=== PATIENT | male | born 1950 | race Caucasian/White ===

== ENCOUNTER 2018-09-27 16:28 | Inpatient (IN) ==
[2018-09-27 17:48] LABS: Appearance Urine Clear (Clear); Bilirubin Urine Negative (Negative); Blood Urine Negative (Negative); Color Urine Yellow; Glucose Urine UA Negative (Negative); Ketones Urine Trace (Negative); Leukocyte Esterase Urine Negative (Negative); Nitrite Urine Negative (Negative); Protein Urine Negative (Negative); Specific Gravity Urine 1.025 (1.000-1.030); Urobilinogen Urine Negative (Negative); pH Urine 6.5 (4.5-7.5)
[2018-09-27 18:06] LABS: Amphetamines+Metham, Urine Neg (Neg); Barbiturates, Urine Neg (Neg); Benzodiazepine, Urine Neg (Neg); Cocaine, Urine Neg (Neg); MDMA (Ecstacy), Urine Neg (Neg); Methadone, Urine Neg (Neg); Opiate, Urine Neg (Neg); Phencyclidine, Urine Neg (Neg)
--- NOTE | 2018-09-27 18:34 | Emergency Department Note ---
Entered by Genai Tobin acting as a scribe for Khadar Law DO History of Present Illness General Chief complaint: Mental Health Evaluation Stated complaint: NOT EATING, NOT TALKING, MENTAL HEALTH EVAL Time Seen by Provider: 09/27/18 17:06 Source: patient and family History of Present Illness Onset (ago): week(s) 4 Location: head Pain Consistency: + other (worsening) Quality: + other (mental health) Relieved By: + medication (Ativan) Exacerbated By: + medication (Ativan) Associated symptoms: + denies other symptoms (SI, HI), + loss of appetite and + other (constantly sleeping, forgetful, anxiety) The patient is a 67 year old male who presents to the ED for a mental health evaluation. The patients states that she had bought the patient in 4 nights ago for anxiety that his progressively gotten worse over the last 4 week s. She reports that he has not been eating, he has not been able to care for his dogs like normal, and all he does is sleep or stare. She reports that he will sleep, get up, move, and go back to sleep. She notes that when he is awake he is sitting in his chair staring without the TV on and without doing anything. She reports that he is concerned over everything from finances to his dogs to his kids to her as she recently had a TIA. She states that his PCP tried putting him on Lexapro, but it offered no relief. The patients daughter states that 4 nights ago it hit a peak and she called a vessel slag worker. She states that after speaking to the crisis counselor in private, they recommended that he come to the ED for admission as inpatient. The patients states that once here he got an Ativan and that helped resolve all his symptoms. She states that they decided that he didnt need inpatient and were discharged with 2 of Ativan. She reports that yesterday they followed up with his PCP who prescribed him Ativan, but as soon as they got home yesterday, he fell asleep and hasnt been up since. She notes that he has only had 4 since leaving the ED 4 days ago. She notes he last had it 4 hours ago. The patient notes that he thinks someone should hurt him. He states that he feels like he let his family down. The patients complains of the patient being forgetful; like locking doors and turning off lights. The patient denies SI and HI. Home Medications Home Medications Medication Instructions Recorded Confirmed Type multivitamin 1 cap PO QAM #0 04/28/15 09/27/18 History aspirin 81 mg tablet,delayed 81 mg PO QAM #0 09/03/18 09/27/18 History release omega 4-rbg-kye-fish oil 100 1 cap PO .QOD cap 09/03/18 09/27/18 History mg-160 mg-1,000 mg capsule escitalopram oxalate 10 mg PO DAILY 09/27/18 09/27/18 History lorazepam 1 mg PO DAILY PRN 09/27/18 09/27/18 History tamsulosin 0.4 mg PO HS 09/27/18 09/27/18 History Allergies Allergy/AdvReac Type Severity Reaction Status Date / Time No Known Drug Allergies Allergy Unknown Verified 09/26/18 07:09 Past Med/Surg History Medical History BCC (basal cell carcinoma of skin) Benign enlargement of prostate Organic impotence Depression (Acute) Anxiety (Acute) HLD (hyperlipidemia) Encounter for screening colonoscopy Fusion of spine lumbar Surgical History History of back surgery 2006 History of colonoscopy History of herniorrhaphy 1985 History of neck surgery 1997 Hx of local excision of skin lesion hx of skin cancer Family History Sister Breast cancer Diabetes Father Heart disease Social History Preferred Language: [place] Communication Ability: Effective Beliefs That Will Affect Care: None marital status: Current Living Situation: Spouse current occupational status: employed and retired current occupation: local tanker truck driver Feels Safe at Home: Yes Smoking Status: Never smoker Second Hand Exposure: No Hx Alcohol Use: No Hx Substance Use: No Review of Systems See HPI for pertinent positives & negatives. and A total of 10 systems reviewed and were otherwise negative Physical Exam Vital Signs Vital Signs - 24 hr 09/27/18 16:33 09/27/18 18:29 Temperature 36.5 C Temperature Source Oral Sepsis Recent Fever Within 48 Hours No Sepsis Action Taken by Nursing No Action Required Pulse Rate 93 H Pulse Rate [Finger] 80 Respiratory Rate 16 18 Blood Pressure 140/94 Blood Pressure [Right Arm] 132/82 Blood Pressure Mean 109 Blood Pressure Mean [Right Arm] 98 Blood Pressure Position Sitting Pulse Oximetry 97 98 Oxygen Delivery Method Room Air CONSTITUTIONAL/VITAL SIGNS: Reviewed / noted above. GENERAL: Non-toxic in appearance. INTEGUMENTARY: Warm, dry, and [place]. HEAD: Normocephalic. EYES: without scleral icterus or trauma. ENT/OROPHARYNX: clear and moist. LYMPHADENOPATHY/NECK: Is supple without lymphadenopathy or meningismus. RESPIRATORY: Lungs clear and equal. CARDIOVASCULAR: Regular rate and rhythm. GI/ABDOMEN: Soft and nontender. No organomegaly or pulsatile mass. No rebound or guarding. Normal bowel sounds. EXTREMITIES: Warm and well perfused. BACK: No CVA tenderness. NEUROLOGICAL: Intact without focal deficits. PSYCHIATRIC: Depressed affect. MUSCULOSKELETAL: Normally developed with good muscle tone. Course 1708: Past medical records reviewed. The patient was evaluated in room A8. A complete history and physical exam was performed. 1931: The patient was medically cleared at this time. 2154: The patient was accepted to [address] [place] [address] at this time. Medical Decision Making Differential Diagnosis Differential diagnoses considered include mood disorder, infection, hypoglycemia, electrolyte abnormalities, cardiac sources, intracerebral event, toxicologic, neurologic, as well as others. Medical Records Attestation: I reviewed the patient's medical records. Home Medications Current Medication List: was personally reviewed by me Laboratory Data Attestation: I reviewed the patient's lab results. Result diagrams: 09/27/18 18:13 09/27/18 18:13 Lab Results 09/27/18 09/27/18 09/27/18 Range/Units 17:30 17:30 18:13 WBC 6.47 (4.8-10.8) K/uL RBC 5.09 (4.7-6.1) M/uL Hgb 14.8 (14.0-18.0) g/dL Hct 41.9 L (42-52) % MCV 82.3 (80-100) fL MCH 29.1 (25-34) pg MCHC 35.3 (32-36) g/dL RDW Std Deviation 39.5 (36.4-46.3) fL RDW Coeff of Robel 13.0 (11.5-14.5) % Plt Count 184 (130-400) K/uL MPV 9.7 (7.4-10.4) fL Immature Gran % (Auto) 0.2 % Neut % (Auto) 56.7 % Lymph % (Auto) 32.1 % Green % (Auto) 9.4 % Eos % (Auto) 1.4 % Baso % (Auto) 0.2 % Immature Gran # (Auto) 0.01 (0.00-0.02) K/uL Neut # (Auto) 3.67 (1.4-6.5) K/uL Lymph # (Auto) 2.08 (1.2-3.4) K/uL Green # (Auto) 0.61 H (0.11-0.59) K/uL Eos # (Auto) 0.09 (0-0.5) K/uL Baso # (Auto) 0.01 (0-0.2) K/uL Sodium (136-145) mmol/L Potassium (3.5-5.1) mmol/L Chloride (98-107) mmol/L Carbon Dioxide (21-32) mmol/L Anion Gap (3-11) BUN (7-18) mg/dl Creatinine (0.6-1.4) mg/dl Est Cr Clr Drug Dosing ml/min Est GFR ( Amer) Est GFR (Non-Af Amer) BUN/Creatinine Ratio (10-20) Glucose (70-99) mg/dl Calcium (8.5-10.1) mg/dl Total Bilirubin (0.2-1) mg/dl AST (15-37) U/L ALT (12-78) U/L Alkaline Phosphatase (45-117) U/L Total Protein (6.4-8.2) gm/dl Albumin (3.4-5.0) gm/dl Globulin (2.5-4.0) gm/dl Albumin/Globulin Ratio (0.9-2) TSH (0.300-4.500) uIu/ml Urine Color Yellow Urine Appearance Clear (Clear) Urine pH 6.5 (4.5-7.5) Ur Specific [place] 1.025 (1.000-1.030) Urine Protein Negative (Negative) Urine Glucose (UA) Negative (Negative) Urine Ketones Trace H (Negative) Urine Blood Negative (Negative) Urine Nitrite Negative (Negative) Urine Bilirubin Negative (Negative) Urine Urobilinogen Negative (Negative) Ur Leukocyte Esterase Negative (Negative) Urine Opiates Screen Neg (Neg) Ur Methadone, Qual Neg (Neg) Urine Barbiturates Neg (Neg) Ur Phencyclidine (PCP) Neg (Neg) U Amphetamin/Meth Scrn Neg (Neg) MDMA (Ecstasy) Screen Neg (Neg) U Benzodiazepines Scrn Neg (Neg) Ur Cocaine Metabolite Neg (Neg) U Marijuana (THC) Screen Neg (Neg) Ethyl Alcohol mg/dL (0-3) mg/dl 09/27/18 09/27/18 Range/Units 18:13 18:13 WBC (4.8-10.8) K/uL RBC (4.7-6.1) M/uL Hgb (14.0-18.0) g/dL Hct (42-52) % MCV (80-100) fL MCH (25-34) pg MCHC (32-36) g/dL RDW Std Deviation (36.4-46.3) fL RDW Coeff of [place]el (11.5-14.5) % Plt Count (130-400) K/uL MPV (7.4-10.4) fL Immature Gran % (Auto) % Neut % (Auto) % Lymph % (Auto) % Green % (Auto) % Eos % (Auto) % Baso % (Auto) % Immature Gran # (Auto) (0.00-0.02) K/uL Neut # (Auto) (1.4-6.5) K/uL Lymph # (Auto) (1.2-3.4) K/uL Green # (Auto) (0.11-0.59) K/uL Eos # (Auto) (0-0.5) K/uL Baso # (Auto) (0-0.2) K/uL Sodium 136 (136-145) mmol/L Potassium 3.7 (3.5-5.1) mmol/L Chloride 105 (98-107) mmol/L Carbon Dioxide 24 (21-32) mmol/L Anion Gap 7.0 (3-11) BUN 19 H (7-18) mg/dl Creatinine 0.89 (0.6-1.4) mg/dl Est Cr Clr Drug Dosing 85.4 ml/min Est GFR ( Amer) 104.0 Est GFR (Non-Af Amer) 89.7 BUN/Creatinine Ratio 21.4 H (10-20) Glucose 97 (70-99) mg/dl Calcium 9.1 (8.5-10.1) mg/dl Total Bilirubin 0.4 (0.2-1) mg/dl AST 15 (15-37) U/L ALT 33 (12-78) U/L Alkaline Phosphatase 57 (45-117) U/L Total Protein 7.2 (6.4-8.2) gm/dl Albumin 3.4 (3.4-5.0) gm/dl Globulin 3.8 (2.5-4.0) gm/dl Albumin/Globulin Ratio 0.9 (0.9-2) TSH 1.780 (0.300-4.500) uIu/ml Urine Color Urine Appearance (Clear) Urine pH (4.5-7.5) Ur Specific [place] (1.000-1.030) Urine Protein (Negative) Urine Glucose (UA) (Negative) Urine Ketones (Negative) Urine Blood (Negative) Urine Nitrite (Negative) Urine Bilirubin (Negative) Urine Urobilinogen (Negative) Ur Leukocyte Esterase (Negative) Urine Opiates Screen (Neg) Ur Methadone, Qual (Neg) Urine Barbiturates (Neg) Ur Phencyclidine (PCP) (Neg) U Amphetamin/Meth Scrn (Neg) MDMA (Ecstasy) Screen (Neg) U Benzodiazepines Scrn (Neg) Ur Cocaine Metabolite (Neg) U Marijuana (THC) Screen (Neg) Ethyl Alcohol mg/dL < 3.0 (0-3) mg/dl Blood Pressure Blood Pressure Findings: Normal blood pressure Blood Pressure Disposition: did not require urgent referral MDM Narrative This is a 67-year-old male who presents to the ED with a chief complaint of depression. The reports the patient has been depressed for about 5 weeks. The PCP put the patient on Lexapro. The patient was seen here on Sunday and the original plan was to admit the patient but after a dose of Ativan he was feeling better and went home. His PCP prescribed him Ativan but he has been drowsy and just laying around most of the time since then. He has no admissions. He denies being suicidal or homicidal. The patient states that he feels as though he let his family down. Family states that he is not eating as much as he normally does. He at times just sits in a chair and stares at the wall. His vital signs are stable. His physical exam was unremarkable. The patient was medically cleared. The blood work was reviewed. The patient was accepted to [facility]. Impression & Plan Depression, Anxiety Discharge Plan Visit Data Chief Complaint: Mental Health Evaluation Stated Complaint: NOT EATING, NOT TALKING, MENTAL HEALTH EVAL ED Provider: Khadar Law Discharge Problem: Depression, Anxiety Patient Disposition: Transfer Behavioral Health Fac Forms Stand Alone Forms: My [facility] Prescriptions Prescriptions: No Action multivitamin Capsule 1 cap PO QAM Qty: 0 RF: 0 aspirin [Aspir-81] 81 mg tablet,delayed release (DR/EC) 81 mg PO QAM Qty: 0 RF: 0 Fish Oil 100-160-1,000 mg capsule 1 cap PO .QOD RF: 0 tamsulosin 0.4 mg capsule 0.4 mg PO HS RF: 0 lorazepam 1 mg tablet 1 mg PO DAILY PRN (Reason: Anxiety) RF: 0 escitalopram oxalate 10 mg tablet 10 mg PO DAILY RF: 0 Referrals Referrals: Stacey Gomez [facility] [Primary Care Provider] - Discharge Problem: Depression Qualifiers: Depression Type: unspecified Qualified Code(s): F32.9 - Major depressive disorder, single episode, unspecified The scribe's documentation has been prepared under my direction and personally reviewed by me in its entirety. I confirm that the note above accurately reflects all work, treatment, procedures, and medical decision making performed by me.
[2018-09-27 18:40] LABS: Basophils # (auto) 0.01 K/uL (0-0.2); Basophils % (auto) 0.2 %; Eosinophils # (auto) 0.09 K/uL (0-0.5); Eosinophils % (auto) 1.4 %; Hematocrit (blood only) 41.9 % (42-52); Hemoglobin 14.8 g/dL (14.0-18.0); Immature Granulocytes # (auto) 0.01 K/uL (0.00-0.02); Immature Granulocytes % (auto) 0.2 %; Lymphocytes # (auto) 2.08 K/uL (1.2-3.4); Lymphocytes % (auto) 32.1 %; Mean Corpuscular Hgb Conc 35.3 g/dL (32-36); Mean Corpuscular Volume 82.3 fL (80-100); Mean Platelet Volume 9.7 fL (7.4-10.4); Monocytes # (auto) 0.61 K/uL (0.11-0.59); Monocytes % (auto) 9.4 %; Neutrophils # (auto) 3.67 K/uL (1.4-6.5); Neutrophils % (auto) 56.7 %; Platelet Count 184 K/uL (130-400); RDW Standard Deviation 39.5 fL (36.4-46.3); Red Blood Count 5.09 M/uL (4.7-6.1); White Blood Count 6.47 K/uL (4.8-10.8)
[2018-09-27 19:04] LABS: Albumin Level 3.4 gm/dl (3.4-5.0); BUN Creatinine Ratio 21.4 (10-20); Calcium 9.1 mg/dl (8.5-10.1); Creatinine Clr Calc Pharmacy 85.4 ml/min; Est GFR (Non-African American) 89.7; Potassium 3.7 mmol/L (3.5-5.1)
[2018-09-27 19:14] LABS: Albumin Globulin Ratio 0.9 (0.9-2); Bilirubin,Total 0.4 mg/dl (0.2-1); Globulin 3.8 gm/dl (2.5-4.0); Total Protein 7.2 gm/dl (6.4-8.2)
[2018-09-27] MEDS ORDERED: ACETAMINOPHEN 325 MG TAB PO PRN (22:22)
[2018-09-27] MEDS ORDERED: BISMUTH SUBSALICYLATE PER ML OMNICELL CHARGE PO PRN (22:22)
[2018-09-27] MEDS ORDERED: MAGNESIUM HYDROXIDE SUSP 30 ML UDC PO PRN (22:22)
[2018-09-27] MEDS ORDERED: SODIUM CHLORIDE 0.65% NA SOLN 45 ML (OCEAN) PRN (22:22)
[2018-09-27] MEDS ORDERED: ALUMINUM/MAGNESIUM SUSP 30 ML UDC PO PRN (22:22)
[2018-09-27] MEDS ORDERED: LORazepam 1 MG TAB PO PRN (22:25)
[2018-09-28] MEDS ORDERED: ESCITALOPRAM OXALATE 10 MG TAB PO SCH (09:00)
[2018-09-28] MEDS ORDERED: ESCITALOPRAM OXALATE 10 MG TAB PO ONE (10:30)
--- NOTE | 2018-09-28 10:43 | History & Physical ---
Date of Service September 28, 2018 Impression / Recommendations Impression 67-year-old gentleman without prior psychiatric history who has appeared depressive and highly anxious for several weeks with declining functional abilities at home precipitating psychiatric hospitalization. He appears essentially incapacitated by his anxiety with somatic and guilty ruminations at admission. He has reportedly responded positively to Ativan so far. SSRI trial with Lexapro recently initiated by PCP without evident therapeutic benefit. Diagnosis: MDD, single episode, severe, with anxious distress, rule out associated psychosis (1) Depression: 09/28 Patient admitted on a voluntary status to the behavioral health unit. He will participate in unit programming as appropriate We will increase Lexapro to 15 mg daily with plan to further titrate as indicated and tolerated. Start Remeron 15 mg p.o. nightly tonight for depression, anxiety, sleep, and appetite stim Rule out psychosis. Patient vague regarding self-report of hallucinations today. Somatically preoccupied. Possible delusions of poverty Depression Type: unspecified Qualified Code(s): F32.9 - Major depressive disorder, single episode, unspecified (2) Anxiety: 09/28 Anxiety severe We will schedule Ativan 1 mg 3 times daily watching for sedation Increase Lexapro and start Remeron as above Appears likely that anxiety is significantly impacting his cognitive abilities presently. If he is able to participate we will try to do MOCA to help track this as anxiety and depression improved with treatment. Inventory Assets Strengths: Help seeking, compliant with treatment recommendations Needs: Medication management and structured setting Risk Factors Assessment Male: Yes : Yes Substance Use Disorders: No Previous Attempt: No Family History of Suicide: No Previous Psychiatric Hospitalization: No Hopelessness: No Smoker: No Protective Factors Assessment : Yes Employed: Yes (Retired) Stable Relationships: Yes Supportive Family: Yes Psychiatric History Identifying Data DONNA RAMON is a 67-year-old M who currently lives in near [facility] with his . He denies prior psychiatric history. He was admitted on 09/27/18 21:56 on a 201 voluntary commitment for functional compromise in the outpatient setting associated with severe depression and anx iety. Chief Complaint "I let my family down." History of Present Illness Per ER note from 09/27/2018 patient presented to the ER for mental health evaluation. reported that she had brought the patient in 4 nights prior for anxiety and progressively worsening over the past 4 weeks. Has not been eating. Diminished functional abilities noted at home. Staring blankly sitting in the chair without the TV on without doing anything. Excessive concern over everything from finances to dogs to kids to her well-being as reportedly recently had a TIA. Noted that he had been recently started on Lexapro by PCP without relief. They had called crisis 4 nights prior to presentation. Ativan seemed to dramatically improve symptoms initially. He had received approximately 4 Ativan doses since discharge from the ED 4 days prior. Patient stated that he think someone should hurt him. He stated that he felt like he left his family down. His reported that he was appearing more forgetful. Patient is a difficult historian this morning secondary to emotional distress. For the majority of the interview he holds his head in his hands staring at the floor. He confirms that he has been feeling worse for the past few weeks, highly anxious and depressed. From his perspective he is unable to sleep and reports only dozing off and on with frequent waking. Energy very low. Endorses crying spells, diminished appetite. Reports 10 pound weight loss in the past month. Endorses thoughts of life not being worth living in current condition but states that he wants to live but feels that he is "nonfunctional" at home. He denies thoughts of harm to anyone else. No self-injurious behaviors. He describes a history of excessive worry however anxiety recently severely exacerbated. Denies history of panic attacks. He denies symptoms of lamin. He states "probably" when asked about hallucinations but cannot further clarify. He endorses absentmindedness at home. He denies prior treatment for depression or anxiety. He is focused on bowel movements during interview but reports he was able to defecate last 2 days ago. Past Psychiatric History Previous Psych History: Patient denies prior psychiatric history Current Psychiatric Diagnosis: Denies Outpatient Services: None Previous Psych Admissions: None Describe Attempts in the Past: Denies Past Medication Trials: Lexapro started in August 2018 by PCP. prn Ativan started in ER in recent weeks Past Head Trauma/Neuro History History of Concussion/Seizure: No Allergies Allergy/AdvReac Type Severity Reaction Status Date / Time No Known Drug Allergies Allergy Unknown Verified 09/26/18 07:09 Home Medications Home Medications Medication Instructions Recorded Confirmed Type multivitamin 1 cap PO QAM #0 04/28/15 09/27/18 History aspirin 81 mg tablet,delayed 81 mg PO QAM #0 09/03/18 09/27/18 History release omega [id number]-fish oil 100 1 cap PO .QOD cap 09/03/18 09/27/18 History mg-160 mg-1,000 mg capsule escitalopram oxalate 10 mg PO DAILY 09/27/18 09/27/18 History lorazepam 1 mg PO DAILY PRN 09/27/18 09/27/18 History tamsulosin 0.4 mg PO HS 09/27/18 09/27/18 History Family History Family History of: None Alcohol History Hx of Alcohol Use Over the Past 12 Months: No AUDIT Total Score: 0 Smoking Use Have You Smoked or Used Tobacco Products in the Last 30 Days: No Smoking Status: Never smoker Substance History Hx of Prescription Med Misuse Over the Past 12 Months: No Hx of Over the Counter Med Misuse Over the Past 12 Months: No Hx of Inhalent Misuse Over the Past 12 Months: No Hx of Organic Substance Use Over the Past 12 Months: No Hx of Illegal Substances/Street Drug Use Over Past 12 Months: No Problems as a Result of Past Substance Use: None Identified Personal History Living Arrangements: Home Highest Grade Completed: High School Graduate 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) Beliefs That Will Affect Care: None Psychological Trauma History Comment: Denies Patient History Medical History BCC (basal cell carcinoma of skin) Benign enlargement of prostate Organic impotence Depression (Acute) Anxiety (Acute) HLD (hyperlipidemia) Encounter for screening colonoscopy Fusion of spine lumbar Surgical History History of back surgery 2007 History of colonoscopy History of herniorrhaphy 1986 History of neck surgery 1997 Hx of local excision of skin lesion hx of skin cancer Family History Sister Breast cancer Diabetes Father Heart disease Social History Preferred Language: Icelandic Communication Ability: Effective Beliefs That Will Affect Care: None marital status: Current Living Situation: Spouse current occupational status: employed and retired current occupation: lease purchase truck driver Feels Safe at Home: Yes Smoking Status: Never smoker Second Hand Exposure: No Hx Alcohol Use: No Hx Substance Use: No Review of Systems Constitutional: as per Subjective / HPI Respiratory: no problem reported Cardiovascular: no problem reported Gastrointestinal: + constipation; no abdominal pain Musculoskeletal: + back pain Neurologic: as per Subjective / HPI Psychiatric: as per Subjective / HPI 10 point review of systems otherwise negative except as per HPI Physical Exam Psychiatric: Orientation: oriented x 3 and cooperative (However participation limited by emotional duress) Apperance: + disheveled Eye Contact: + poor eye contact Motor Behavior: + unsteady gait or station (Gait is slow, somewhat wide-based) Speech: + abnormal rate/rhythm/volume of speech (Soft, minimal. Articulation clear) Affect: + depressed affect, + anxious affect and + constricted affect Mood: + depressed mood and + anxious mood Thought Process: goal directed thought process (He is superficially logical and responds to direct questions however thought process appears somewhat slowed overall and perseverative) Thought Content: + preoccupation (Bowel function, financial worries, but family down), + delusions, + worthlessness and + self deprecation Suicidal Thoughts: denies suicidal thoughts, denies suicidal plan and denies suicidal intent Homicidal Thoughts: denies homicidal thoughts, denies homicidal plan and denies homicidal intent Patient endorses probable marci lucinations but cannot or will not further clarify at this time Cognition: + attention not intact Insight: + limited insight Judgement: + limited judgement Vital Signs (Past 24 Hours): Last Vital Signs Temp 36.7 C 09/28/18 06:38 Pulse 94 H 09/28/18 06:40 Resp 16 09/28/18 06:38 BP 128/77 09/28/18 06:40 Pulse Ox 97 09/27/18 22:05 Results & Data Laboratory Results Laboratory Results - last 24 hr 09/27/18 09/27/18 09/27/18 17:30 17:30 18:13 WBC 6.47 RBC 5.09 Hgb 14.8 Hct 41.9 L MCV 82.3 MCH 29.1 MCHC 35.3 RDW Std Deviation 39.5 RDW Coeff of Robel 13.0 Plt Count 184 MPV 9.7 Immature Gran % (Auto) 0.2 Neut % (Auto) 56.7 Lymph % (Auto) 32.1 [place] % (Auto) 9.4 Eos % (Auto) 1.4 Baso % (Auto) 0.2 Immature Gran # (Auto) 0.01 Neut # (Auto) 3.67 Lymph # (Auto) 2.08 [place] # (Auto) 0.61 H Eos # (Auto) 0.09 Baso # (Auto) 0.01 Sodium Potassium Chloride Carbon Dioxide Anion Gap BUN Creatinine Est Cr Clr Drug Dosing Est GFR ( Amer) Est GFR (Non-Af Amer) BUN/Creatinine Ratio Glucose Calcium Total Bilirubin AST ALT Alkaline Phosphatase Total Protein Albumin Globulin Albumin/Globulin Ratio TSH Urine Color Yellow Urine Appearance Clear Urine pH 6.5 Ur Specific [place] 1.025 Urine Protein Negative Urine Glucose (UA) Negative Urine Ketones Trace H Urine Blood Negative Urine Nitrite Negative Urine Bilirubin Negative Urine Urobilinogen Negative Ur Leukocyte Esterase Negative Urine Opiates Screen Neg Ur Methadone, Qual Neg Urine Barbiturates Neg Ur Phencyclidine (PCP) Neg U Amphetamin/Meth Scrn Neg MDMA (Ecstasy) Screen Neg U Benzodiazepines Scrn Neg Ur Cocaine Metabolite Neg U Marijuana (THC) Screen Neg Ethyl Alcohol mg/dL 09/27/18 09/27/18 18:13 18:13 WBC RBC Hgb Hct MCV MCH MCHC RDW Std Deviation RDW Coeff of Robel Plt Count MPV Immature Gran % (Auto) Neut % (Auto) Lymph % (Auto) [place] % (Auto) Eos % (Auto) Baso % (Auto) Immature Gran # (Auto) Neut # (Auto) Lymph # (Auto) [place] # (Auto) Eos # (Auto) Baso # (Auto) Sodium 136 Potassium 3.7 Chloride 105 Carbon Dioxide 24 Anion Gap 7.0 BUN 19 H Creatinine 0.89 Est Cr Clr Drug Dosing 85.4 Est GFR ( Amer) 104.0 Est GFR (Non-Af Amer) 89.7 BUN/Creatinine Ratio 21.4 H Glucose 97 Calcium 9.1 Total Bilirubin 0.4 AST 15 ALT 33 Alkaline Phosphatase 57 Total Protein 7.2 Albumin 3.4 Globulin 3.8 Albumin/Globulin Ratio 0.9 TSH 1.780 Urine Color Urine Appearance Urine pH Ur Specific [place] Urine Protein Urine Glucose (UA) Urine Ketones Urine Blood Urine Nitrite Urine Bilirubin Urine Urobilinogen Ur Leukocyte Esterase Urine Opiates Screen Ur Methadone, Qual Urine Barbiturates Ur Phencyclidine (PCP) U Amphetamin/Meth Scrn MDMA (Ecstasy) Screen U Benzodiazepines Scrn Ur Cocaine Metabolite U Marijuana (THC) Screen Ethyl Alcohol mg/dL < 3.[address] 09/02/2017: No acute process. Patchy white matter hypodensities likely small vessel in nature Current Inpatient Medications Current Inpatient Medications: Current Inpatient Medications Acetaminophen (Tylenol) 650 mg PO Q4H PRN PRN Reason: Headache or Minor Fever Stop: 10/27/18 22:21 Al Hydrox/Mg Hydrox/Simethicone (Maalox) 30 ml PO Q4H PRN PRN Reason: GI Upset Stop: 10/27/18 22:21 Aspirin (Ecotrin Ectab) 81 mg PO QAM ESTEE Stop: 10/28/18 08:59 Bismuth Subsalicylate (Kaopectate) 15 ml PO PRN PRN PRN Reason: Loose Stool Stop: 10/27/18 22:21 Escitalopram Oxalate (Lexapro Tab) 15 mg PO QAM ESTEE Stop: 10/29/18 08:59 Hydroxyzine HCl (Vistaril) 50 mg PO HSZ PRN PRN Reason: Insomnia Stop: 10/27/18 22:21 Hydroxyzine HCl (Vistaril) 25 mg PO Q4H PRN PRN Reason: Anxiety Stop: 10/27/18 22:21 Lorazepam (Ativan) 1 mg PO TID ESTEE Stop: 10/28/18 10:29 Magnesium Hydroxide (Milk Of Magnesia) 30 ml PO DAILY PRN PRN Reason: Heartburn Stop: 10/27/18 22:21 Mirtazapine (Remeron) 15 mg PO HS ESTEE Stop: 10/28/18 21:59 Multivitamins (Multivitamin Tab) 1 tab PO QAM ESTEE Stop: 10/28/18 08:59 Sodium Chloride (Tyler Nasal) 1 - 2 sprays NA PRN PRN PRN Reason: Nasal Dryness/Congestion Stop: 10/27/18 22:21 Tamsulosin HCl (Flomax) 0.4 mg PO HS ESTEE Stop: 10/28/18 21:59 CPT Code CPT Code Initial Hospital Care: [id number]
[2018-09-28] MEDS: MULTIVITAMIN TAB PO SCH (11:25)
[2018-09-28] MEDS: LORazepam 1 MG TAB PO SCH ×3 (11:25→21:08)
[2018-09-28] MEDS: ASPIRIN 81 MG ECTAB PO SCH (11:25)
[2018-09-28] MEDS: TAMSULOSIN HCL 0.4 MG CAP PO SCH (21:08)
[2018-09-28] MEDS: MIRTAZAPINE TAB 15 MG TAB PO SCH (21:08)
[2018-09-28] MEDS: DOCUSATE SODIUM 100 MG CAP PO SCH (21:08)
[2018-09-29] MEDS: ASPIRIN 81 MG ECTAB PO SCH (07:37)
[2018-09-29] MEDS: ESCITALOPRAM OXALATE 10 MG TAB PO SCH (07:37)
[2018-09-29] MEDS: MULTIVITAMIN TAB PO SCH (07:37)
[2018-09-29] MEDS: LORazepam 1 MG TAB PO SCH ×3 (07:37→21:35)
--- NOTE | 2018-09-29 14:37 | Psychiatric Progress Note ---
Date of Service September 29, 2018 Impression / Recommendations Impression 67-year-old gentleman without prior psychiatric history who has appeared depressive and highly anxious for several weeks with declining functional abilities at home precipitating psychiatric hospitalization. He appears essentially incapacitated by his anxiety with somatic and guilty ruminations at admission and some posturing concerning for catatonia.. He has reportedly responded positively to Ativan so far. SSRI trial with Lexapro recently initiated by PCP without evident therapeutic benefit. Diagnosis: MDD, single episode, severe, with anxious distress, rule out associated psychosis (1) Depression: 09/28 Patient admitted on a voluntary status to the behavioral health unit. He will participate in unit programming as appropriate We will increase Lexapro to 15 mg daily with plan to further titrate as indicated and tolerated. Start Remeron 15 mg p.o. nightly tonight for depression, anxiety, sleep, and appetite stim Rule out psychosis. Patient vague regarding self-report of hallucinations today. Somatically preoccupied. Possible delusions of poverty 09/29 Dramatic improvement following 3 times daily Ativan. Suspect catatonia with symptoms of negativism, posturing, and grimacing all improved today. Will continue Ativan unchanged today but watch for sedation and this should be weaned as mood improves with antidepressant treatment We will continue the increased dose of Lexapro unchanged today Concern for possible drug reaction (Remeron?). Skin lesions did not look like a classic drug rash today but this will require monitoring. Started on as needed Benadryl today. Has family meeting tomorrow to explore stressors (2) Anxiety: 09/28 Anxiety severe We will schedule Ativan 1 mg 3 times daily watching for sedation Increase Lexapro and start Remeron as above Appears likely that anxiety is significantly impacting his cognitive abilities presently. If he is able to participate we will try to do MOCA to help track this as anxiety and depression improved with treatment. 09/29 Anxiety much improved today but certainly not resolved. Continue Ativan as above for now. Suspect anxiety severity yesterday as primary regarding cognitive difficulties appreciated yesterday. Patient scored a 28 on the moca on 09/28/2018 reducing suspicion for likelihood of progressive neurocognitive disorder Inventory Assets Strengths: Help seeking, compliant with treatment recommendations Needs: Medication management and structured setting Risk Factors Assessment Male: Yes : Yes Substance Use Disorders: No Previous Attempt: No Family History of Suicide: No Previous Psychiatric Hospitalization: No Hopelessness: No Smoker: No Protective Factors Assessment : Yes Employed: Yes (Retired) Stable Relationships: Yes Supportive Family: Yes Interval History Chief Complaint "Not too bad thank you". Review of Systems Notes Slept well last night. Denies gastrointestinal complaints this morning. Denies shortness of breath, cough Sleep Information Total Hours of Sleep: 7.5 Meal Information Percent Meal Consumed - Breakfast: 100 Percent Meal Consumed - Lunch: 100 Percent Meal Consumed - Dinner: 100 Nutrition Comment: poor appetite r/t constipation Subjective Subjective Patient was seen & assessed and interval progress reviewed with Treatment Team. Per staff, patient appeared dramatically improved following Ativan yesterday. Appearing much more calm, conversant, spontaneous. Somatic preoccupation regarding bowel habits resolved. He has a family meeting scheduled for tomorrow with his . Compliant with medication. Scored a 28 on the moca yesterday which reduces suspicion for underlying neurocognitive disorder. On interview the patient states "I am doing much better." He describes diminished anxiety and improving hopefulness. He demonstrates improved problem-solving ability today. "I think we can work it out." He does appear more anxious when describing recent financial stressors and feels bad that his has had to work. Of note, patient complains of a "rash" on his arms which were examined. Forearms are reddened at areas of contact with table. No obvious rash on arms, chest, back, legs. No shortness of breath. Patient denies history of allergies. Physical Exam Psychiatric Orientation: alert, oriented x 3 and cooperative Apperance: appropriately dressed and appropriately groomed; not disheveled Erythematous patches on forearms Eye Contact: + fair eye contact Motor Behavior: no abnormal motor movements Speech: normal rate/rhythm/volume of speech Affect: + anxious affect (But much improved) Mood: no depressed mood ("Pretty good") Thought Process: goal directed thought process Thought Content: reality based without delusions Suicidal Thoughts: denies suicidal thoughts Homicidal Thoughts: denies homicidal thoughts Hallucinations: no auditory hallucinations and no visual hallucinations Cognition: + attention not intact Insight: + limited insight Judgement: + fair judgement Vital Signs (Past 24 Hours) Last Vital Signs Temp 36.6 C 09/29/18 06:39 Pulse 86 09/29/18 06:39 Resp 16 09/29/18 06:39 BP 143/81 H 09/29/18 06:39 Pulse Ox 97 09/27/18 22:05 Results & Data Current Inpatient Medications Current Inpatient Medications: Current Inpatient Medications Acetaminophen (Tylenol) 650 mg PO Q4H PRN PRN Reason: Headache or Minor Fever Stop: 10/27/18 22:21 Al Hydrox/Mg Hydrox/Simethicone (Maalox) 30 ml PO Q4H PRN PRN Reason: GI Upset Stop: 10/27/18 22:21 Aspirin (Ecotrin Ectab) 81 mg PO QAM [facility] Stop: 10/28/18 08:59 Last Admin: 09/29/18 07:37 Dose: 81 mg Documented by: Bismuth Subsalicylate (Kaopectate) 15 ml PO PRN PRN PRN Reason: Loose Stool Stop: 10/27/18 22:21 Diphenhydramine HCl (Benadryl Capsule) 25 mg PO Q8H PRN PRN Reason: itching Stop: 10/29/18 09:14 Last Admin: 09/29/18 11:44 Dose: 25 mg Documented by: Docusate Sodium (Colace) 100 mg PO HS [facility] Stop: 10/28/18 21:59 Last Admin: 09/28/18 21:08 Dose: 100 mg Documented by: Escitalopram Oxalate (Lexapro Tab) 15 mg PO QAM [facility] Stop: 10/29/18 08:59 Last Admin: 09/29/18 07:37 Dose: 15 mg Documented by: Hydroxyzine HCl (Vistaril) 50 mg PO HSZ PRN PRN Reason: Insomnia Stop: 10/27/18 22:21 Hydroxyzine HCl (Vistaril) 25 mg PO Q4H PRN PRN Reason: Anxiety Stop: 10/27/18 22:21 Lorazepam (Ativan) 1 mg PO TID ESTEE Stop: 10/28/18 10:29 Last Admin: 09/29/18 07:37 Dose: 1 mg Documented by: Magnesium Hydroxide (Milk Of Magnesia) 30 ml PO DAILY PRN PRN Reason: Heartburn Stop: 10/27/18 22:21 Mirtazapine (Remeron) 15 mg PO HS [facility] Stop: 10/28/18 21:59 Last Admin: 09/28/18 21:08 Dose: 15 mg Documented by: Multivitamins (Multivitamin Tab) 1 tab PO QAM ESTEE Stop: 10/28/18 08:59 Last Admin: 09/29/18 07:37 Dose: 1 tab Documented by: Sodium Chloride ([place] Nasal) 1 - 2 sprays NA PRN PRN PRN Reason: Nasal Dryness/Congestion Stop: 10/27/18 22:21 Tamsulosin HCl (Flomax) 0.4 mg PO HS ESTEE Stop: 10/28/18 21:59 Last Admin: 09/28/18 21:08 Dose: 0.4 mg Documented by: Post Discharge Appointments Primary Care Physician Name Of Family Doctor: [facility] - Stacey Gomez PA-C Primary Care Provider Appointment Comment: [address], [address], [place] [address] Contact Information Discharge Discharge Address: [address] [place] [address] CPT Code CPT Code 59204 (1) Depression Depression Type: unspecified Qualified Code(s): F32.9 - Major depressive disorder, single episode, unspecified
[2018-09-29] MEDS: TAMSULOSIN HCL 0.4 MG CAP PO SCH (21:36)
[2018-09-29] MEDS: MIRTAZAPINE TAB 15 MG TAB PO SCH (21:36)
[2018-09-29] MEDS: DOCUSATE SODIUM 100 MG CAP PO SCH (21:36)
[2018-09-30] MEDS: ASPIRIN 81 MG ECTAB PO SCH (08:38)
[2018-09-30] MEDS: LORazepam 1 MG TAB PO SCH ×3 (08:38→21:16)
[2018-09-30] MEDS: ESCITALOPRAM OXALATE 10 MG TAB PO SCH (08:38)
[2018-09-30] MEDS: MULTIVITAMIN TAB PO SCH (08:39)
--- NOTE | 2018-09-30 13:49 | Psychiatric Progress Note ---
Date of Service September 30, 2018 Impression / Recommendations Impression 67-year-old gentleman without prior psychiatric history who has appeared depressive and highly anxious for several weeks with declining functional abilities at home precipitating psychiatric hospitalization. He appears essentially incapacitated by his anxiety with somatic and guilty ruminations at admission and some posturing concerning for catatonia - improvement with initiation of higher dosage of lorazepam. Escitalopram titrated to 20mg daily, as patient is wishing to discontinue mirtazapine due to rash appearing around the time of initiation. Participated in family meeting over weekend. Condition appears to be improving, but he remains at high risk of decompensation and possible harm to self if he is discharged prematurely. Diagnosis: MDD, single episode, severe, with anxious distress, rule out associated psychosis (1) Depression: 09/28 Patient admitted on a voluntary status to the behavioral health unit. He will participate in unit programming as appropriate We will increase Lexapro to 15 mg daily with plan to further titrate as indicated and tolerated. Start Remeron 15 mg p.o. nightly tonight for depression, anxiety, sleep, and appetite stim Rule out psychosis. Patient vague regarding self-report of hallucinations today. Somatically preoccupied. Possible delusions of poverty 09/29 Dramatic improvement following 3 times daily Ativan. Suspect catatonia with symptoms of negativism, posturing, and grimacing all improved today. Will continue Ativan unchanged today but watch for sedation and this should be weaned as mood improves with antidepressant treatment We will continue the increased dose of Lexapro unchanged today Concern for possible drug reaction (Remeron?). Skin lesions did not look like a classic drug rash today but this will require monitoring. Started on as needed Benadryl today. Has family meeting tomorrow to explore stressors 09/30 - Increase escitalopram to 20mg daily starting tomorrow morning - denies side effects - Pt requesting to stop mirtazapine due to rash, though not clearly the offending agent - consider retrial on an outpatient basis if escitalopram is ineffective as monotherapy - Awaiting confirmation of outpatient appointments to complete psychiatric aftercare (2) Anxiety: 09/28 Anxiety severe We will schedule Ativan 1 mg 3 times daily watching for sedation Increase Lexapro and start Remeron as above Appears likely that anxiety is significantly impacting his cognitive abilities presently. If he is able to participate we will try to do MOCA to help track this as anxiety and depression improved with treatment. 09/29 Anxiety much improved today but certainly not resolved. Continue Ativan as above for now. Suspect anxiety severity yesterday as primary regarding cognitive difficulties appreciated yesterday. Patient scored a 28 on the moca on 09/28/2018 reducing suspicion for likelihood of progressive neurocognitive disorder 09/30 - Continue lorazepam as scheduled, patient informed the dosage would likely be tapered on an outpatient basis - Increase escitalopram to 20mg for tomorrow morning - Pt requesting to discontinue mirtazapine due to rash, though not clearly the offending agent Inventory Assets Strengths: Help seeking, compliant with treatment recommendations Needs: Medication management and structured setting Risk Factors Assessment Male: Yes : Yes Substance Use Disorders: No Previous Attempt: No Family History of Suicide: No Previous Psychiatric Hospitalization: No Hopelessness: No Smoker: No Protective Factors Assessment : Yes Employed: Yes (Retired) Stable Relationships: Yes Supportive Family: Yes Interval History Identifying Information DONNA RAMON is a 67-year-old M who currently lives in [facility] with his . He denies prior psychiatric history. He was admitted on 09/27/18 21:56 on a 201 voluntary commitment for functional compromise in the outpatient setting associated with severe depression and anxiety - with suspicion for catatonic presentation. Chief Complaint "I'm feeling a little better, It's just hard to keep my mind focused." Review of Systems Notes Constitutional: rash to forearms bilaterally is improving Cardiovascular: denied Respiratory: denied Gastrointestinal: denied Neurological: denied Psychiatric: denies symptoms other than stated above Total of at least 10 systems reviewed, pertinent positives as above and in HPI. Sleep Information Total Hours of Sleep: 8 Meal Information Percent Meal Consumed - Breakfast: 100 Percent Meal Consumed - Lunch: 100 Percent Meal Consumed - Dinner: 100 Nutrition Comment: poor appetite r/t constipation Subjective Subjective Patient was seen & assessed and interval progress reviewed with Treatment Team. Staff reports the patient's debilitating anxiety appears to be improving. He has been participating in group programming and completed a family meeting over the weekend. Pt was seen today to assess progress since admission. Pt states he is noticing improvement in his mood and anxiety. He feels it is still somewhat difficult to focus on tasks on the unit, but believes this is improving as well. Pt states, "the Ativan made it a lot better, but it's still a struggle sometimes." At this time, financial concerns remain most prominent for the patient. Despite this, he states, "It's ok, we'll make it work. My and family are really supportive." Pt is agreeable to further titration of escitalopram, but states he is concerned about continuing mirtazapine. Reviewed the numerous possible causing for his rash, but he continues to prefer the medication be stopped. Pt denies ongoing suicidal ideation, or other concerns today. Physical Exam Psychiatric Orientation: alert, oriented x 3 and cooperative Apperance: appropriately dressed and appropriately groomed Eye Contact: good eye contact Motor Behavior: steady gait and station and no abnormal motor movements Speech: normal rate/rhythm/volume of speech Affect: + anxious affect (mildly) Mood: + anxious mood; no depressed mood "a little better" Thought Process: goal directed thought process and clear/coherent thought process Thought Content: reality based without delusions Suicidal Thoughts: denies suicidal thoughts and denies suicidal plan Homicidal Thoughts: denies homicidal thoughts Hallucinations: no auditory hallucinations and no visual hallucinations Cognition: attention grossly intact and language grossly intact Estimated Intelligence: consistent with education level Insight: + fair insight Judgement: + fair judgement Vital Signs (Past 24 Hours) Last Vital Signs Temp 36.5 C 09/30/18 06:55 Pulse 97 H 09/30/18 06:56 Resp 18 09/30/18 06:55 BP 101/61 09/30/18 06:56 Pulse Ox 97 09/27/18 22:05 Results & Data Current Inpatient Medications Current Inpatient Medications: Current Inpatient Medications Acetaminophen (Tylenol) 650 mg PO Q4H PRN PRN Reason: Headache or Minor Fever Stop: 10/27/18 22:21 Al Hydrox/Mg Hydrox/Simethicone (Maalox) 30 ml PO Q4H PRN PRN Reason: GI Upset Stop: 10/27/18 22:21 Aspirin (Ecotrin Ectab) 81 mg PO QAM ESTEE Stop: 10/28/18 08:59 Last Admin: 09/30/18 08:38 Dose: 81 mg Documented by: Bismuth Subsalicylate (Kaopectate) 15 ml PO PRN PRN PRN Reason: Loose Stool Stop: 10/27/18 22:21 Diphenhydramine HCl (Benadryl Capsule) 25 mg PO Q8H PRN PRN Reason: itching Stop: 10/29/18 09:14 Last Admin: 09/29/18 11:44 Dose: 25 mg Documented by: Docusate Sodium (Colace) 100 mg PO HS ESTEE Stop: 10/28/18 21:59 Last Admin: 09/29/18 21:36 Dose: 100 mg Documented by: Escitalopram Oxalate (Lexapro Tab) 15 mg PO QAM ESTEE Stop: 10/29/18 08:59 Last Admin: 09/30/18 08:38 Dose: 15 mg Documented by: Hydroxyzine HCl (Vistaril) 50 mg PO HSZ PRN PRN Reason: Insomnia Stop: 10/27/18 22:21 Hydroxyzine HCl (Vistaril) 25 mg PO Q4H PRN PRN Reason: Anxiety Stop: 10/27/18 22:21 Lorazepam (Ativan) 1 mg PO TID ESTEE Stop: 10/28/18 10:29 Last Admin: 09/30/18 08:38 Dose: 1 mg Documented by: Magnesium Hydroxide (Milk Of Magnesia) 30 ml PO DAILY PRN PRN Reason: Heartburn Stop: 10/27/18 22:21 Mirtazapine (Remeron) 15 mg PO HS ESTEE Stop: 10/28/18 21:59 Last Admin: 09/29/18 21:36 Dose: Not Given Documented by: Multivitamins (Multivitamin Tab) 1 tab PO QAM ESTEE Stop: 10/28/18 08:59 Last Admin: 09/30/18 08:39 Dose: 1 tab Documented by: Sodium Chloride ([place] Nasal) 1 - 2 sprays NA PRN PRN PRN Reason: Nasal Dryness/Congestion Stop: 10/27/18 22:21 Tamsulosin HCl (Flomax) 0.4 mg PO HS ESTEE Stop: 10/28/18 21:59 Last Admin: 09/29/18 21:36 Dose: 0.4 mg Documented by: Mental Health & Subst Abuse Tx Psychiatrist Name of Psychiatrist: Megh[facility] - Dr. Aguilar Psychiatrist's Date of Appointment with Psychiatrist: 10/17/18 Time of Appointment with Psychiatrist: 10:40 a.m. Psychiatric Appointment Comment: [address], [address], [place], [place] Therapist Name of Therapist: [facility] - Ernie Kincaid Therapist's Date of Therapist Appointment: 10/03/18 Time of Therapist Appointment: 3:00 p.m. (please show up at 2:30) Therapy Appointment Comment: [address] [facility], [address], [place], [place] Post Discharge Appointments Primary Care Physician Name Of Family Doctor: [facility] - NOEMY GardnerC Primary Care Time of Appointment with PCP: Follow up as needed Provider Appointment Comment: [address] [facility], [address], [place] [address] Contact Information Discharge Discharge Address: [address] [place], [place] [address] [facility] CPT Code CPT Code 70933 (1) Depression Depression Type: unspecified Qualified Code(s): F32.9 - Major depressive disorder, single episode, unspecified
[2018-09-30] MEDS: DOCUSATE SODIUM 100 MG CAP PO SCH (21:16)
[2018-09-30] MEDS: TAMSULOSIN HCL 0.4 MG CAP PO SCH (21:16)
[2018-10-01] MEDS: LORazepam 1 MG TAB PO SCH (08:34)
[2018-10-01] MEDS: MULTIVITAMIN TAB PO SCH (08:35)
[2018-10-01] MEDS: ASPIRIN 81 MG ECTAB PO SCH (08:35)
[2018-10-01] MEDS ORDERED: NAPROXEN 250 MG TAB PO PRN (08:46)
[2018-10-01] MEDS ORDERED: ESCITALOPRAM OXALATE 20 MG TAB PO SCH (09:00)
--- NOTE | 2018-10-01 09:02 | Discharge Summary ---
Date of Service October 01, 2018 History of Present Illness Per ER note from 09/27/2018 patient presented to the ER for mental health evaluation. reported that she had brought the patient in 4 nights prior for anxiety and progressively worsening over the past 4 weeks. Has not been eating. Diminished functional abilities noted at home. Staring blankly sitting in the chair without the TV on without doing anything. Excessive concern over everything from finances to dogs to kids to her well-being as reportedly recently had a TIA. Noted that he had been recently started on Lexapro by PCP without relief. They had called crisis 4 nights prior to presentation. Ativan seemed to dramatically improve symptoms initially. He had received approximately 4 Ativan doses since discharge from the ED 4 days prior. Patient stated that he think someone should hurt him. He stated that he felt like he left his family down. His reported that he was appearing more forgetful. Patient is a difficult historian this morning secondary to emotional distress. For the majority of the interview he holds his head in his hands staring at the floor. He confirms that he has been feeling worse for the past few weeks, highly anxious and depressed. From his perspective he is unable to sleep and reports only dozing off and on with frequent waking. Energy very low. Endorses crying spells, diminished appetite. Reports 10 pound weight loss in the past month. Endorses thoughts of life not being worth living in current condition but states that he wants to live but feels that he is "nonfunctional" at home. He denies thoughts of harm to anyone else. No self-injurious behaviors. He describes a history of excessive worry however anxiety recently severely exacerbated. Denies history of panic attacks. He denies symptoms of lamin. He states "probably" when asked about hallucinations but cannot further clarify. He endorses absentmindedness at home. He denies prior treatment for depression or anxiety. He is focused on bowel movements during interview but reports he was able to defecate last 2 days ago. Physical Exam Vital Signs (Past 24 Hours) Last Vital Signs Temp 36.8 C 10/01/18 06:41 Pulse 96 H 10/01/18 06:42 Resp 18 10/01/18 06:41 BP 105/63 10/01/18 06:42 Pulse Ox 97 09/27/18 22:05 Psychiatric Data Advance Directives Advance Directives Information Provided: Yes Advance Directives: No Living Will: No Power of Typer: No Advance Directives Reason:: Declines as Mental Health Visit. Risk Factors Assessment Male: Yes : Yes Substance Use Disorders: No Previous Attempt: No Family History of Suicide: No Previous Psychiatric Hospitalization: No Hopelessness: No Smoker: No Protective Factors Assessment : Yes Employed: Yes (Retired) Stable Relationships: Yes Supportive Family: Yes Discharge Data Lab Results 09/27/18 09/27/18 09/27/18 17:30 17:30 18:13 WBC 6.47 RBC 5.09 Hgb 14.8 Hct 41.9 L MCV 82.3 MCH 29.1 MCHC 35.3 RDW Std Deviation 39.5 RDW Coeff of Robel 13.0 Plt Count 184 MPV 9.7 Immature Gran % (Auto) 0.2 Neut % (Auto) 56.7 Lymph % (Auto) 32.1 [place] % (Auto) 9.4 Eos % (Auto) 1.4 Baso % (Auto) 0.2 Immature Gran # (Auto) 0.01 Neut # (Auto) 3.67 Lymph # (Auto) 2.08 [place] # (Auto) 0.61 H Eos # (Auto) 0.09 Baso # (Auto) 0.01 Sodium Potassium Chloride Carbon Dioxide Anion Gap BUN Creatinine Est Cr Clr Drug Dosing Est GFR ( Amer) Est GFR (Non-Af Amer) BUN/Creatinine Ratio Glucose Calcium Total Bilirubin AST ALT Alkaline Phosphatase Total Protein Albumin Globulin Albumin/Globulin Ratio TSH Urine Color Yellow Urine Appearance Clear Urine pH 6.5 Ur Specific [place] 1.025 Urine Protein Negative Urine Glucose (UA) Negative Urine Ketones Trace H Urine Blood Negative Urine Nitrite Negative Urine Bilirubin Negative Urine Urobilinogen Negative Ur Leukocyte Esterase Negative Urine Opiates Screen Neg Ur Methadone, Qual Neg Urine Barbiturates Neg Ur Phencyclidine (PCP) Neg U Amphetamin/Meth Scrn Neg MDMA (Ecstasy) Screen Neg U Benzodiazepines Scrn Neg Ur Cocaine Metabolite Neg U Marijuana (THC) Screen Neg Ethyl Alcohol mg/dL 09/27/18 09/27/18 18:13 18:13 WBC RBC Hgb Hct MCV MCH MCHC RDW Std Deviation RDW Coeff of Robel Plt Count MPV Immature Gran % (Auto) Neut % (Auto) Lymph % (Auto) [place] % (Auto) Eos % (Auto) Baso % (Auto) Immature Gran # (Auto) Neut # (Auto) Lymph # (Auto) [place] # (Auto) Eos # (Auto) Baso # (Auto) Sodium 136 Potassium 3.7 Chloride 105 Carbon Dioxide 24 Anion Gap 7.0 BUN 19 H Creatinine 0.89 Est Cr Clr Drug Dosing 85.4 Est GFR ( Amer) 104.0 Est GFR (Non-Af Amer) 89.7 BUN/Creatinine Ratio 21.4 H Glucose 97 Calcium 9.1 Total Bilirubin 0.4 AST 15 ALT 33 Alkaline Phosphatase 57 Total Protein 7.2 Albumin 3.4 Globulin 3.8 Albumin/Globulin Ratio 0.9 TSH 1.780 Urine Color Urine Appearance Urine pH Ur Specific [place] Urine Protein Urine Glucose (UA) Urine Ketones Urine Blood Urine Nitrite Urine Bilirubin Urine Urobilinogen Ur Leukocyte Esterase Urine Opiates Screen Ur Methadone, Qual Urine Barbiturates Ur Phencyclidine (PCP) U Amphetamin/Meth Scrn MDMA (Ecstasy) Screen U Benzodiazepines Scrn Ur Cocaine Metabolite U Marijuana (THC) Screen Ethyl Alcohol mg/dL < 3.0 Hospital Course (1) Depression: 09/28 Patient admitted on a voluntary status to the behavioral health unit. He will participate in unit programming as appropriate We will increase Lexapro to 15 mg daily with plan to further titrate as indicated and tolerated. Start Remeron 15 mg p.o. nightly tonight for depression, anxiety, sleep, and appetite stim Rule out psychosis. Patient vague regarding self-report of hallucinations today. Somatically preoccupied. Possible delusions of poverty 09/29 Dramatic improvement following 3 times daily Ativan. Suspect catatonia with symptoms of negativism, posturing, and grimacing all improved today. Will continue Ativan unchanged today but watch for sedation and this should be weaned as mood improves with antidepressant treatment We will continue the increased dose of Lexapro unchanged today Concern for possible drug reaction (Remeron?). Skin lesions did not look like a classic drug rash today but this will require monitoring. Started on as needed Benadryl today. Has family meeting tomorrow to explore stressors 09/30 - Increase escitalopram to 20mg daily starting tomorrow morning - denies side effects - Pt requesting to stop mirtazapine due to rash, though not clearly the offending agent - consider retrial on an outpatient basis if escitalopram is ineffective as monotherapy - Awaiting confirmation of outpatient appointments to complete psychiatric aftercare (2) Anxiety: 09/28 Anxiety severe We will schedule Ativan 1 mg 3 times daily watching for sedation Increase Lexapro and start Remeron as above Appears likely that anxiety is significantly impacting his cognitive abilities presently. If he is able to participate we will try to do MOCA to help track this as anxiety and depression improved with treatment. 09/29 Anxiety much improved today but certainly not resolved. Continue Ativan as above for now. Suspect anxiety severity yesterday as primary regarding cognitive difficulties appreciated yesterday. Patient scored a 28 on the moca on 09/28/2018 reducing suspicion for likelihood of progressive neurocognitive disorder 09/30 - Continue lorazepam as scheduled, patient informed the dosage would likely be tapered on an outpatient basis - Increase escitalopram to 20mg for tomorrow morning - Pt requesting to discontinue mirtazapine due to rash, though not clearly the offending agent Mental Health & Subst Abuse Tx Psychiatrist Name of Psychiatrist: [facility] - Dr. Aguilar Psychiatrist's Date of Appointment with Psychiatrist: 10/17/18 Time of Appointment with Psychiatrist: 10:40 a.m. Psychiatric Appointment Comment: [address] [facility] [facility] [address], [place], [place] Therapist Name of Therapist: [employer] - Ernie Kincaid Therapist's Date of Therapist Appointment: 10/03/18 Time of Therapist Appointment: 3:00 p.m. (please show up at 2:30) Therapy Appointment Comment: [address] [facility], [facility] [address], [place], [place] Post Discharge Appointments Primary Care Physician Name Of Family Doctor: [facility] - Stacey Gomez PA-C Primary Care Time of Appointment with PCP: Follow up as needed Provider Appointment Comment: [address] [facility], [facility] [address], [place] [address] Contact Information Discharge Discharge [address]: [address] [place] [id number] Discharge Plan Discharge Items Reason For Visit: DEPRESSION SINGLE EPISODE Follow-up/Referrals: Stacey Gomez PA-C [Primary Care Provider] - Prescriptions: No Action multivitamin Capsule 1 cap PO QAM Qty: 0 RF: 0 aspirin [Aspir-81] 81 mg tablet,delayed release (DR/EC) 81 mg PO QAM Qty: 0 RF: 0 Fish Oil 100-160-1,000 mg capsule 1 cap PO .QOD RF: 0 tamsulosin 0.4 mg capsule 0.4 mg PO HS RF: 0 lorazepam 1 mg tablet 1 mg PO DAILY PRN (Reason: Anxiety) RF: 0 escitalopram oxalate 10 mg tablet 10 mg PO DAILY RF: 0 Admission Data Admit Date/Time: 09/27/18 21:56 Attending Provider: Abraham More Admit Provider: Abraham More Primary Care Provider: Stacey Gomez Service: Psychiatry Other Interventions: PSY Interdisciplinary Discharge Planning Last Done: 09/30/18 13:46
--- NOTE | 2018-10-01 11:00 | Discharge Summary ---
Date of Service October 01, 2018 History of Present Illness Per ER note from 09/27/2018 patient presented to the ER for mental health evaluation. reported that she had brought the patient in 4 nights prior for anxiety and progressively worsening over the past 4 weeks. Has not been eating. Diminished functional abilities noted at home. Staring blankly sitting in the chair without the TV on without doing anything. Excessive concern over everything from finances to dogs to kids to her well-being as reportedly recently had a TIA. Noted that he had been recently started on Lexapro by PCP without relief. They had called crisis 4 nights prior to presentation. Ativan seemed to dramatically improve symptoms initially. He had received approximately 4 Ativan doses since discharge from the ED 4 days prior. Patient stated that he think someone should hurt him. He stated that he felt like he left his family down. His reported that he was appearing more forgetful. Patient is a difficult historian this morning secondary to emotional distress. For the majority of the interview he holds his head in his hands staring at the floor. He confirms that he has been feeling worse for the past few weeks, highly anxious and depressed. From his perspective he is unable to sleep and reports only dozing off and on with frequent waking. Energy very low. Endorses crying spells, diminished appetite. Reports 10 pound weight loss in the past month. Endorses thoughts of life not being worth living in current condition but states that he wants to live but feels that he is "nonfunctional" at home. He denies thoughts of harm to anyone else. No self-injurious behaviors. He describes a history of excessive worry however anxiety recently severely exacerbated. Denies history of panic attacks. He denies symptoms of lamin. He states "probably" when asked about hallucinations but cannot further clarify. He endorses absentmindedness at home. He denies prior treatment for depression or anxiety. He is focused on bowel movements during interview but reports he was able to defecate last 2 days ago. Physical Exam Psychiatric Orientation: alert, oriented x 3 and cooperative Apperance: appropriately dressed, appropriately groomed and appeared stated age Eye Contact: good eye contact Motor Behavior: steady gait and station and no abnormal motor movements Speech: normal rate/rhythm/volume of speech Affect: euthymic affect and mood congruent with affect "A lot better." Thought Process: goal directed thought process Thought Content: reality based without delusions Suicidal Thoughts: denies suicidal thoughts Homicidal Thoughts: denies homicidal thoughts Hallucinations: no auditory hallucinations and no visual hallucinations Cognition: recent memory grossly intact, attention grossly intact and language grossly intact Insight: + fair insight Judgement: + fair judgement Vital Signs (Past 24 Hours) Last Vital Signs Temp 36.8 C 10/01/18 06:41 Pulse 96 H 10/01/18 06:42 Resp 18 10/01/18 06:41 BP 105/63 10/01/18 06:42 Pulse Ox 97 09/27/18 22:05 Principal Diagnosis Major depressive disorder, single episode, 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 Psychiatric Data Patient was hospitalized on our unit for 4 days. On admission, he reported depressive and anxiety symptoms for several weeks, with declining functional abilities at home and catatonic features. He had just started Ativan the day prior to admission by his PCP, and his dose was increased to 1 mg 3 times daily with good response. Escitalopram was increased to target mood and anxiety symptoms, and mirtazapine was added for depression, anxiety, sleep, and appetite. He reported concern for a rash, and had reddened areas on his forearms where they had been resting on the table, that did not appear consistent with a drug rash. The patient, however, was concerned and declined mirtazapine, so it was discontinued. His mood and anxiety improved, he was able to process his stressors, including financial problems and falling behind on housework. He had a family meeting with his and adult children, who are supportive, discussed ways to address their financial problems, and confirmed that guns at home are secured. He was referred for outpatient therapy and psychiatric care, and attended and participated in groups and therapy while in the hospital. He demonstrated fairly rapid improvement in mood and anxiety in the hospital, and consistently denied suicidal ideation. Initially on admis christiano, there was a question of psychotic features, as the patient answered "probably" when asked if he was hallucinations, but was unable to clarify further. He later denied psychotic symptoms, and none were noted on observation. Day of Discharge Assessment Staff report the patient is doing well, completing ADLs independently and attending and participating in groups and therapy. He has been sleeping and eating well here, socializing with staff and peers and had a good visit with family last evening. On my assessment, the patient reports mood is "a lot better," and that he is significantly improved from admission. He reports feeling overwhelmed by his stressors on admission, but now feels they are manageable, and that he has good support and help at home. He denies suicidal thoughts, thoughts of harming others, hallucinations, and paranoia. He does not recall hallucinating prior to or at the time of admission. He reports good sleep and appetite, and denies side effects to medications. He is looking forward to going home and spending time with his . He states that his secured the guns at home. Transition of Care Transition Of Care Record: was reviewed with the patient Advance Directives Advance Directives Information Provided: Yes Advance Directives: No Mental Health Advance Directive: No Advance Directives on File: No Living Will: No Power of Aquarium Tank Attendant: No Advance Directives Reason:: Declines as Mental Health Visit. Risk Factors Assessment Risk factors were mitigated by admission to the inpatient unit, adjusting medications to target depression and anxiety, involving the patient in groups and therapy, working on healthy coping skills and a discharge safety plan, involving his and adult children in a family meeting, and referring him for outpatient psychiatric care and therapy. He has demonstrated improvement in his symptoms, is able to perform ADLs, is taking medications and tolerating them well, and is consistently denying thoughts of harming himself or others. He has been referred for outpatient treatment, and is requesting discharge. As he is no longer at acute risk of harms, he can be managed as an outpatient at this time. Male: Yes : Yes Do You Have Access To A Gun?: No ( has secured guns) Health Problems: No Mental Health Diagnoses: Yes Substance Use Disorders: No Previous Attempt: No Family History of Suicide: No Previous Psychiatric Hospitalization: No Hopelessness: No Smoker: No Protective Factors Assessment Scientology Beliefs: Yes : Yes Responsible for Young Children: No Employed: Yes (Retired) Stable Relationships: Yes Supportive Family: Yes Tobacco Cessation at Discharge Tobacco Cessation Medication Prescribed at Discharge: Not Applicable/Non-Smoker Total Time Total Time Spent: Greater Than 30 Minutes Total Time Includes: Examination of the patient, Discharge Planning and Medication Reconciliation Discharge Data Lab Results 09/27/18 09/27/18 09/27/18 17:30 17:30 18:13 WBC 6.47 RBC 5.09 Hgb 14.8 Hct 41.9 L MCV 82.3 MCH 29.1 MCHC 35.3 RDW Std Deviation 39.5 RDW Coeff of Robel 13.0 Plt Count 184 MPV 9.7 Immature Gran % (Auto) 0.2 Neut % (Auto) 56.7 Lymph % (Auto) 32.1 [place] % (Auto) 9.4 Eos % (Auto) 1.4 Baso % (Auto) 0.2 Immature Gran # (Auto) 0.01 Neut # (Auto) 3.67 Lymph # (Auto) 2.08 [place] # (Auto) 0.61 H Eos # (Auto) 0.09 Baso # (Auto) 0.01 Sodium Potassium Chloride Carbon Dioxide Anion Gap BUN Creatinine Est Cr Clr Drug Dosing Est GFR ( Amer) Est GFR (Non-Af Amer) BUN/Creatinine Ratio Glucose Calcium Total Bilirubin AST ALT Alkaline Phosphatase Total Protein Albumin Globulin Albumin/Globulin Ratio TSH Urine Color Yellow Urine Appearance Clear Urine pH 6.5 Ur Specific [place] 1.025 Urine Protein Negative Urine Glucose (UA) Negative Urine Ketones Trace H Urine Blood Negative Urine Nitrite Negative Urine Bilirubin Negative Urine Urobilinogen Negative Ur Leukocyte Esterase Negative Urine Opiates Screen Neg Ur Methadone, Qual Neg Urine Barbiturates Neg Ur Phencyclidine (PCP) Neg U Amphetamin/Meth Scrn Neg MDMA (Ecstasy) Screen Neg U Benzodiazepines Scrn Neg Ur Cocaine Metabolite Neg U Marijuana (THC) Screen Neg Ethyl Alcohol mg/dL 09/27/18 09/27/18 18:13 18:13 WBC RBC Hgb Hct MCV MCH MCHC RDW Std Deviation RDW Coeff of [place] Plt Count MPV Immature Gran % (Auto) Neut % (Auto) Lymph % (Auto) [place] % (Auto) Eos % (Auto) Baso % (Auto) Immature Gran # (Auto) Neut # (Auto) Lymph # (Auto) [place] # (Auto) Eos # (Auto) Baso # (Auto) Sodium 136 Potassium 3.7 Chloride 105 Carbon Dioxide 24 Anion Gap 7.0 BUN 19 H Creatinine 0.89 Est Cr Clr Drug Dosing 85.4 Est GFR ( Amer) 104.0 Est GFR (Non-Af Amer) 89.7 BUN/Creatinine Ratio 21.4 H Glucose 97 Calcium 9.1 Total Bilirubin 0.4 AST 15 ALT 33 Alkaline Phosphatase 57 Total Protein 7.2 Albumin 3.4 Globulin 3.8 Albumin/Globulin Ratio 0.9 TSH 1.780 Urine Color Urine Appearance Urine pH Ur Specific [place] Urine Protein Urine Glucose (UA) Urine Ketones Urine Blood Urine Nitrite Urine Bilirubin Urine Urobilinogen Ur Leukocyte Esterase Urine Opiates Screen Ur Methadone, Qual Urine Barbiturates Ur Phencyclidine (PCP) U Amphetamin/Meth Scrn MDMA (Ecstasy) Screen U Benzodiazepines Scrn Ur Cocaine Metabolite U Marijuana (THC) Screen Ethyl Alcohol mg/dL < 3.0 Hospital Course (1) Depression: 09/28 Patient admitted on a voluntary status to the behavioral health unit. He will participate in unit programming as appropriate We will increase Lexapro to 15 mg daily with plan to further titrate as indicated and tolerated. Start Remeron 15 mg p.o. nightly tonight for depression, anxiety, sleep, and appetite stim Rule out psychosis. Patient vague regarding self-report of hallucinations today. Somatically preoccupied. Possible delusions of poverty 09/29 Dramatic improvement following 3 times daily Ativan. Suspect catatonia with symptoms of negativism, posturing, and grimacing all improved today. Will continue Ativan unchanged today but watch for sedation and this should be weaned as mood improves with antidepressant treatment We will continue the increased dose of Lexapro unchanged today Concern for possible drug reaction (Remeron?). Skin lesions did not look like a classic drug rash today but this will require monitoring. Started on as needed Benadryl today. Has family meeting tomorrow to explore stressors 09/30 - Increase escitalopram to 20mg daily starting tomorrow morning - denies side effects - Pt requesting to stop mirtazapine due to rash, though not clearly the offending agent - consider retrial on an outpatient basis if escitalopram is ineffective as monotherapy - Awaiting confirmation of outpatient appointments to complete psychiatric aftercare (2) Anxiety: 09/28 Anxiety severe We will schedule Ativan 1 mg 3 times daily watching for sedation Increase Lexapro and start Remeron as above Appears likely that anxiety is significantly impacting his cognitive abilities presently. If he is able to participate we will try to do MOCA to help track this as anxiety and depression improved with treatment. 09/29 Anxiety much improved today but certainly not resolved. Continue Ativan as above for now. Suspect anxiety severity yesterday as primary regarding cognitive difficulties appreciated yesterday. Patient scored a 28 on the moca on 09/28/2018 reducing suspicion for likelihood of progressive neurocognitive disorder 09/30 - Continue lorazepam as scheduled, patient informed the dosage would likely be tapered on an outpatient basis - Increase escitalopram to 20mg for tomorrow morning - Pt requesting to discontinue mirtazapine due to rash, though not clearly the offending agent Mental Health & Subst Abuse Tx Psychiatrist [facility] Psychiatrist's Date of Appointment with Psychiatrist: 10/17/18 Time of Appointment with Psychiatrist: 10:40 a.m. Psychiatric Appointment Comment: [address] [facility], [facility] [address], [place], [place] Therapist Name of Therapist: [facility] - Ernie Kincaid Therapist's Date of Therapist Appointment: 10/03/18 Time of Therapist Appointment: 3:00 p.m. (please show up at 2:30) Therapy Appointment Comment: [address], [facility] [address], [place] Post Discharge Appointments Primary Care Physician Name Of Family Doctor: [facility] - Stacey Gomez PA-C Primary Care Time of Appointment with PCP: Follow up as needed Provider Appointment Comment: [address] [facility], [address], [place] [address] Smoking Cessation Counseling Tobacco Cessation Medication Prescribed at Discharge: Not Applicable/Non-Smoker Contact Information Discharge Discharge Address: [address] [place] [address] Discharge Plan Discharge Items Patient Disposition: Home - Self-Care Reason For Visit: DEPRESSION SINGLE EPISODE Discharge Diagnosis: Major depression, single episode, severe with anxious distress and catatonic features Discharge Goals: Decrease discomfort, Improve disease control, Improve function, Learn about illness, Specific goals and Therapeutic intervention Specific Goals: refer for outpatient care Activity: Per 'Additional Instructions' section Non-emergency contact: Primary Care Provider, Psychiatrist and Therapist Call non-emergency contact if: you have any medication questions and your symptoms worsen Follow-up/Referrals: Stacey Gomez PA-C [Primary Care Provider] - Diet: Regular Addtl Provider Instructions: SPECIAL CARE INSTRUCTIONS: 1. Follow through with your scheduled aftercare appointments. If unable to keep an appointment, please call to reschedule. 2. Take your medication only as prescribed. Medication should not be changed or stopped without the approval of your doctor. In the event of worsening symptoms or concerns about side effects, contact your doctor immediately. 3. Utilize new healthy coping skills, anger management skills, and stress management skills learned during your hospitalization. Journal feelings and process them with a support person. Identify stressors or situations that may result in relapse, deterioration or inappropriate behaviors and develop a plan to deal with those issues. 4. If your coping skills are ineffective and you are in crisis, contact your outpatient providers for direction. If unable to reach your providers, please call the CAN HELP LINE AT or go to the closest Emergency Room. 5. Avoid alcohol and un-prescribed drugs. 6. You have been provided with the Mental Health Advance Directives Pamphlet for your review. AFTERCARE APPOINTMENTS: * Please call your insurance company prior to your scheduled appointment to confirm your aftercare providers are covered. Take your insurance information to your appointments. WHO TO CALL AND WHEN: Medical Emergencies: For questions or emergencies related to your hospital stay, please contact the Inpatient Behavioral Health Unit at [phone]. A principal clerk is on-call 09/10 for the Behavioral Health Unit for emergencies At any time you feel your situation is an emergency, you may also call 911 immediately. Your Doctors Instructions noted above were prepared by provider Lanette Khanna MD. Prescriptions: New escitalopram oxalate 20 mg Tablet 20 mg PO QAM Qty: 30 RF: 0 lorazepam 1 mg tablet 1 mg PO TID Qty: 20 RF: 0 Continued multivitamin Capsule 1 cap PO QAM Qty: 0 RF: 0 aspirin [Aspir-81] 81 mg tablet,delayed release (DR/EC) 81 mg PO QAM Qty: 0 RF: 0 Fish Oil 100-160-1,000 mg capsule 1 cap PO .QOD RF: 0 tamsulosin 0.4 mg capsule 0.4 mg PO HS RF: 0 Discontinued lorazepam 1 mg tablet 1 mg PO DAILY PRN (Reason: Anxiety) RF: 0 escitalopram oxalate 10 mg tablet 10 mg PO DAILY RF: 0 Stand-Alone Forms: [facility] Discharge Orders: Discharge Order (Routine); Ordered 10/01/18 Ordered By: Lanette Khanna Admission Data Admit Date/Time: 09/27/18 21:56 Attending Provider: Abraham More Admit Provider: Abraham More Primary Care Provider: Stacey Gomez Service: Psychiatry Other Interventions: Discharge Summary Assessment (RN) Last Done: 10/01/18 11:06 PSY Interdisciplinary Discharge Planning Last Done: 10/01/18 11:06 Pending Studies at Discharge: No
== END 2018-10-01 11:41 | disposition home or self-care (01) | DRG 885 ==
LOC: ED 16:28 → 3S 21:56